=== PATIENT | male | born 1935 | race African-American/Black ===

== ENCOUNTER 2017-03-16 15:30 | Emergency (ER) | payer OTHER ==
[~2017-03-16] VITALS: Ht 182.9 cm; Wt 100.0 kg
[2017-03-16] MEDS ORDERED: DEXTROSE 50% WATER 50ML SYRINGE IV ONE ×2 (16:00→17:30)
[2017-03-16] MEDS ORDERED: DOPAMINE 400MG PREMIX 250 ML IV ONE ×3 (16:37→21:45)
[2017-03-16] MEDS ORDERED: PIPERACILLIN/TAZ 3.375G PREMIX 50 ML IV ONE (16:45)
[2017-03-16] MEDS ORDERED: ETOMIDATE 2MG/ML 10ML VIAL IV ONE ×2 (16:45→17:00)
[2017-03-16] MEDS ORDERED: VANCOMYCIN 1 G PREMIX 200 ML IV ONE (16:45)
[2017-03-16] MEDS ORDERED: SODIUM CHLORIDE 0.9% 1000ML BAG (SEPSIS BOLUS) IV ONE (16:45)
[2017-03-16] MEDS ORDERED: NOREPINEPHRINE 4 MG in DEXT 5% WATER 246 ML IV ONE ×3 (16:45→21:45)
[2017-03-16] MEDS ORDERED: VECURONIUM BROMIDE 10 MG/VIAL IV ONE ×2 (16:45→17:00)
[2017-03-16 16:57] LABS: HEMATOCRIT. 25.6 % (42.0-52.0); HEMOGLOBIN. 7.6 g/dL (14.0-18.0); MEAN CORPUSCULAR HEMOGLOBIN 26.7 pg (28.0-32.0); MEAN CORPUSCULAR VOLUME 90.2 fL (80.0-94.0); MEAN PLATELET VOLUME 8.5 fl (7.4-10.4); PLATELET 98 x1000/uL (130-400); RED BLOOD CELL COUNT 2.83 mill/uL (4.7-6.1); RED CELL DISTRIBUTION WIDTH 24.5 % (11.6-14.6)
[2017-03-16] MEDS ORDERED: EPINEPHRINE 0.1MG/ML (1:10,000) 10ML SYR ONE (17:00)
[2017-03-16] MEDS ORDERED: SODIUM BICARBONATE 7.5% 0.9 MEQ/ML 50ML SYR IV ONE (17:00)
[2017-03-16] MEDS ORDERED: STERILE WATER FOR INJECTION 10ML VIAL ONE (17:00)
[2017-03-16] MEDS ORDERED: NOREPINEPHRINE 4 MG in DEXT 5% WATER 246 ML IV NR (17:00)
[2017-03-16 17:09] LABS: CHLORIDE 95 mEq/L (98-107)
[2017-03-16 17:14] LABS: INR 1.7; PARTIAL THROMBOPLASTIN TIME 70.2 sec (24.0-34.0); PROTHROMBIN TIME 18.3 sec
[2017-03-16 17:16] LABS: CARBON DIOXIDE 9 mEq/L (21-32)
[2017-03-16 17:20] LABS: BG BASE EXCESS -21.5 mmol/L (-2.0-2.0); BG CARBOXYHEMOGLOBIN 0.3 % (0.5-1.5); BG DEOXYHEMOGLOBIN 1.5 % (0.0-5.0); BG FRACTION INSPIRED OXYGEN 100; BG HCO3 ACT 9.3 mmol/L (22.0-26.0); BG METHEMOGLOBIN 0.6 % (0.0-1.5); BG OXYGEN SATURATION 98.5 % (92.0-98.5); BG OXYHEMOGLOBIN 97.6 % (94.0-97.0); BG PCO2 42.7 mmHg (35.0-45.0); BG PH 6.957 (7.350-7.450); BG PO2 199.1 mmHg (75.0-100.0); BG SAMPLE SITE LEFT BRACHIAL; BG TIDAL VOLUME(mL) 500 mL; BG TOTAL HEMOGLOBIN 8.9 g/dL (12.0-18.0); BG VENT MODE VENT - A/C; BG VENT RATE 12 set
[2017-03-16 17:26] LABS: CLARITY URINE TURBID (CLEAR); COLOR URINE DARK YELLOW (YELLOW); GLUCOSE URINE NEGATIVE (NEGATIVE); KETONES URINE NEGATIVE (NEGATIVE); LEUKOCYTE ESTERASE URINE 2+ (NEGATIVE); NITRITE URINE POSITIVE (NEGATIVE); OCCULT BLOOD URINE 3+ (NEGATIVE); PROTEIN URINE 2+ (NEGATIVE); SPECIFIC GRAVITY URINE 1.019 (1.005-1.030)
[2017-03-16] MEDS ORDERED: ALBUTEROL (0.083%) 2.5MG/3ML NEB HHN ONE (17:45)
[2017-03-16] MEDS ORDERED: SODIUM BICARBONATE 8.4% 1 MEQ/ML 50ML SYR IV ONE (17:45)
[2017-03-16] MEDS ORDERED: CALCIUM CHLORIDE 1GM/10ML SYR IV ONE (17:45)
[2017-03-16] MEDS ORDERED: SODIUM POLYSTYRENE SULFONATE 15 G/60 ML BOT NG ONE (17:45)
[2017-03-16] MEDS ORDERED: PROPOFOL 10MG/ML 100ML 100 ML IV SCH (17:45)
[2017-03-16] MEDS ORDERED: SODIUM BICARBONATE 150 MEQ in DEXTROSE 5% WATER 1,000 ML IV ONE (17:45)
[2017-03-16 17:51] LABS: NUCLEATED RED BLOOD CELLS 58 /100 WBC
[2017-03-16 17:52] LABS: PLATELET ESTIMATE DECREASED
[2017-03-16] MEDS ORDERED: GENTAMICIN 60MG PREMIX 50 ML IV SCH (19:15)
[2017-03-16] MEDS ORDERED: DOPAMINE 400MG PREMIX 250 ML IV NR (21:48)
[2017-03-16] MEDS ORDERED: SODIUM BICARBONATE 50 MEQ in SODIUM CHLORIDE 0.45% 1,000 ML IV SCH (23:24)
[2017-03-16] MEDS ORDERED: SODIUM CHLORIDE 0.9% 1,000 ML IV SCH (23:24)
[2017-03-16] MEDS ORDERED: IPRATROPIUM BROMIDE (0.02%) 0.5MG/2.5ML NEB INH PRN (23:30)
[2017-03-16] MEDS ORDERED: NOREPINEPHRINE 4 MG in DEXT 5% WATER 246 ML IV PRN (23:30)
[2017-03-16] MEDS ORDERED: ONDANSETRON HCL 4MG/2ML VIAL IV PRN (23:30)
[2017-03-16] MEDS ORDERED: CEFEPIME 1,000 MG in DEXTROSE 5% WATER 50 ML IV SCH (23:30)
[2017-03-16] MEDS ORDERED: ACETAMINOPHEN 650MG/20.3ML UDC GT PRN (23:30)
[2017-03-17] MEDS ORDERED: DOPAMINE 400MG PREMIX 250 ML IV PRN
[2017-03-17] MEDS ORDERED: NOREPINEPHRINE 4 MG in DEXT 5% WATER 246 ML IV PRN (00:30)
[2017-03-17 01:00] VITALS: BP 60/39
[2017-03-17] MEDS ORDERED: NOREPINEPHRINE 4 MG in DEXT 5% WATER 246 ML IV ONE (01:00)
[2017-03-17] MEDS ORDERED: DEXT 5%/0.9% NACL 1,000 ML IV SCH ×2 (05:15)
[2017-03-17] MEDS ORDERED: SODIUM BICARBONATE 50 MEQ in SODIUM CHLORIDE 0.45% 1,000 ML IV SCH (05:15)
[2017-03-17] MEDS ORDERED: CEFEPIME 1,000 MG in DEXTROSE 5% WATER 50 ML IV SCH (05:15)
[2017-03-17] MEDS ORDERED: PANTOPRAZOLE SODIUM 40 MG/VIAL IV SCH ×2 (09:00→09:15)
== END 2017-03-17 01:42 | disposition expired ==
LOC: ER 15:31
DX: R65.21 Severe sepsis with septic shock (principal); A41.9 Sepsis, unspecified organism; J96.00 Acute respiratory failure, unspecified whether with hypoxia or hypercapnia; N17.9 Acute kidney failure, unspecified; E87.5 Hyperkalemia; I21.3 ST elevation (STEMI) myocardial infarction of unspecified site; E43 Unspecified severe protein-calorie malnutrition; N39.0 Urinary tract infection, site not specified; G93.41 Metabolic encephalopathy; C61 Malignant neoplasm of prostate; D63.0 Anemia in neoplastic disease; C79.9 Secondary malignant neoplasm of unspecified site; R79.89 Other specified abnormal findings of blood chemistry; I10 Essential (primary) hypertension; Z68.29 Body mass index [BMI] 29.0-29.9, adult; W01.0XXA Fall on same level from slipping, tripping and stumbling without subsequent striking against object, initial encounter; Y92.018 Other place in single-family (private) house as the place of occurrence of the external cause
CPT/HCPCS: 31500; 36415; 36556; 36600; 43753; 51702; 70450; 71010; 72125; 72170; 80053; 81001; 82375; 82805; 82962; 83605; 83880; 84484; 85025; 85610; 85730; 86850; 86900; 86901; 86920; 87040; 87086; 92950; 93005; 94640; 96365; 96366; 96367; 96368; 99291; A4216; J0171; J1265; J1580; J2543; J3370; J3490; J7030; J7070; J7611; 94002; 96375; 96376; J7060; A4315